=== PATIENT | male | born 1960 | race Caucasian/White ===

== ENCOUNTER 2016-07-11 09:48 | Emergency (ER) | payer SELFPAY ==
[~2016-07-11] VITALS: Ht 172.7 cm; Wt 71.7 kg
[2016-07-11 09:53] VITALS: BP 160/103
== END 2016-07-11 11:43 | disposition home or self-care (01) ==
LOC: ER 09:53
DX: S61.201D Unspecified open wound of left index finger without damage to nail, subsequent encounter (principal); F17.210 Nicotine dependence, cigarettes, uncomplicated; Z48.01 Encounter for change or removal of surgical wound dressing